=== PATIENT | male | born 1945 | race Caucasian/White ===

== ENCOUNTER 2022-01-07 11:49 | Emergency (ER) | payer OTHER ==
[~2022-01-07] VITALS: Ht 167.6 cm; Wt 73.5 kg
[2022-01-07 12:10] VITALS: BP_SYST 149
--- NOTE | 2022-01-07 12:15 | NUR ---
PT BROUGHT TO CT
[2022-01-07 12:46] LABS: BASOPHILS % (AUTO) 0.7 % (0.0-2.0); EOSINOPHILS # (AUTO) 0.2 K/uL (0.0-0.4); EOSINOPHILS % (AUTO) 2.4 % (0.0-4.0); HEMATOCRIT 39.6 % (36-54); LYMPHOCYTES # (AUTO) 2.4 K/uL (1.0-5.5); LYMPHOCYTES % (AUTO) 33.2 % (20.5-51.5); MEAN CORPUSCULAR VOLUME 89 fL (79.0-98.0); MONOCYTES % (AUTO) 13.5 % (1.7-9.3); NEUTROPHILS # (AUTO) 3.6 K/uL (1.8-7.7); NEUTROPHILS % (AUTO) 50.2 % (40.0-70.0); PLATELET COUNT (AUTO) 245 K/uL (130-430); RED BLOOD CELL COUNT(AUTO) 4.45 MIL/uL (4.2-6.2); WHITE BLOOD COUNT (AUTO) 7.2 K/uL (4.8-10.8)
--- NOTE | 2022-01-07 12:49 | NUR ---
Patient to ER bed 04 to gown for evaluation. Side rails up.
--- NOTE | 2022-01-07 13:00 | NUR ---
PT presents to the ER bib self from home. CC left sided numbness to face and extremities of left side. Pt notes tingling along leg and arm of left side. Pt denies Headache, NV. Pt states numb feeling onset 1 week. Respirations even and unlabored.
[2022-01-07] MEDS ORDERED: LISI-209 PO (13:02)
[2022-01-07] MEDS ORDERED: LIP40 PO (13:03)
[2022-01-07] MEDS ORDERED: ASA81 PO (13:07)
[2022-01-07] MEDS ORDERED: METF-518 PO (13:07)
[2022-01-07] MEDS ORDERED: LORA10TA7 PO (13:08)
--- NOTE | 2022-01-07 13:09 | NUR ---
Medication list reconciled per patient.
--- NOTE | 2022-01-07 13:13 | NUR ---
RECEIVED REPORT FROM FRANCISCO JAVIER AND WILL ASSUME CARE. PT STATES HE HAS HAD 2 WEEKS WITH LEFT SIDED FACIAL NUMBNESS AND BODY NUMBNESS. PT STATES HE IS UNDER A LOT OF STRESS DUE TO TAKING CARE OF HIS . PT STATES THAT HE TOOK HIS BP MEDS THIS AM. IB=364/76. DR JARVIS AWARE
[2022-01-07 13:27] LABS: ANION GAP 9 (5-15); CALCIUM 9.6 mg/dL (8.4-11.0); CHLORIDE 103 mmol/L (98-107); CREATININE 0.88 mg/dL (0.55-1.30); GLUCOSE 134 mg/dL (70-99); POTASSIUM 3.9 mmol/L (3.5-5.1); UREA NITROGEN, BLOOD 18 mg/dL (8-21)
[2022-01-07 13:39] LABS: ALANINE AMINOTRANSFERASE 71 U/L (12-78); ALBUMIN 3.8 g/dL (3.4-4.8); ASPARTATE AMINOTRANSFERASE 44 U/L (10-37); TOTAL BILIRUBIN 0.5 mg/dL (0.0-1.0)
--- NOTE | 2022-01-07 13:48 | NUR ---
RESTING QUIETLY, NO CHANGES
[2022-01-07] MEDS ORDERED: ASPI-1393 PO (14:43)
[2022-01-07 15:08] VITALS: BP_SYST 145
--- NOTE | 2022-01-07 15:10 | NUR ---
Patient given written and verbal discharge instructions and verbalizes understanding. ER MD discussed with patient the results and treatment provided. Patient in stable condition. ID arm band removed. Rx of Aspirin given. Patient educated on pain management and to follow up with PMD. Pain Scale 0/10 . Opportunity for questions provided and answered. Medication side effect fact sheet provided.
== END 2022-01-07 15:10 | disposition home or self-care (01) ==
LOC: SED 11:49
DX: G45.9 Transient cerebral ischemic attack, unspecified (principal); R20.2 Paresthesia of skin; Z79.899 Other long term (current) drug therapy
CPT/HCPCS: 36415; 70450-TC; 71045; 76376; 80053; 84484; 85025; 93005; 99285